=== PATIENT | female | born 1945 | race Caucasian/White ===

== ENCOUNTER 2020-08-18 14:33 | Observation (INO) ==
[2020-08-18 15:03] LABS: Basophils % 0.5 % (0.0-0.8); Eosinophils # 0.2 10*3/uL (0.0-0.87); Eosinophils % 1.7 % (0.00-10.9); Hemoglobin 11.7 GM/DL (12.0-16.0); Immature Granulocytes % 0.3 %; Immature Granulocytes Absolute 0.03 #; Lymphocytes # 1.3 10*3/uL (1.4-4.0); Mean Corpuscular HGB Conc 31.6 GM/DL (32-36); Mean Corpuscular Volume 91.4 FL (87-102); Mean Platelet Volume 12.1 FL (9.6-12.0); Monocytes % 6.3 % (1.7-12.7); Neutrophils % 76.2 % (38.7-73.9); Platelet Count 163 T/CUMM (130-400); Red Blood Count 4.05 MC/CUMM (3.8-5.5); White Blood Count 8.7 T/CUMM (4-12)
[2020-08-18 15:16] LABS: INR 1.1; PT Patient Result 11.9 SECS (10.5-12.0)
[2020-08-18 15:25] LABS: Bilirubin,Total 0.4 MG/DL (0.2-1.0); Calcium 8.2 MG/DL (8.5-10.1); Osmolality,Calculated 273.8 MOS/KG (273-304); Potassium 3.3 MMOL/L (3.5-5.1); Total Protein 7.7 G/DL (6.4-8.2)
[2020-08-18] MEDS ORDERED: GLUCAGON 1 MG VIAL IM PRN ×2 (16:26)
[2020-08-18] MEDS ORDERED: DEXTROSE 50% 25 GM/50 ML VIAL IV PRN ×2 (16:26)
[2020-08-18] MEDS ORDERED: POTASSIUM CHLORIDE 20 MEQ TABLET PO ONE (16:35)
[2020-08-18] MEDS: INSULIN LISPRO 100 UNIT/ML SUBCUT SCH ×2 (17:28→20:49)
[2020-08-18] MEDS ORDERED: ATORVASTATIN 10 MG TABLET PO SCH (21:00)
[2020-08-18] MEDS: SODIUM CHLORIDE 0.45% 1,000 ML IV SCH (21:34)
[2020-08-18] MEDS: BRIMONIDINE/TIMOLOL OPH SOLN 5 ML BOTTLE BOTH EYES SCH (22:08)
[2020-08-18] MEDS ORDERED: MAGNESIUM SULF RIDER 4 GM/100 ML PREMIX IV PRN (23:18)
[2020-08-18] MEDS ORDERED: POTASSIUM CHLORIDE RIDER 10 MEQ/100 ML PREMIX IV PRN (23:18)
[2020-08-19] MEDS ORDERED: ACETAMINOPHEN 325 MG TABLET PO PRN (00:05)
[2020-08-19] MEDS ORDERED: POTASSIUM CHLORIDE 20 MEQ TABLET PO PRN (00:12)
[2020-08-19] MEDS: MAGNESIUM SULF RIDER 2 GM/50 ML PREMIX IV PRN ×2 (01:04→02:49)
[2020-08-19 05:44] LABS: Basophils % 0.5 % (0.0-0.8); Eosinophils # 0.2 10*3/uL (0.0-0.87); Eosinophils % 2.5 % (0.00-10.9); Hematocrit 36.3 VOL% (35.7-47.0); Hemoglobin 11.8 GM/DL (12.0-16.0); Immature Granulocytes % 0.5 %; Immature Granulocytes Absolute 0.03 #; Lymphocytes # 1.4 10*3/uL (1.4-4.0); Lymphocytes % 22.1 % (21.3-54.2); Mean Corpuscular HGB Conc 32.5 GM/DL (32-36); Mean Corpuscular Volume 89.6 FL (87-102); Mean Platelet Volume 12.4 FL (9.6-12.0); Monocytes % 6.5 % (1.7-12.7); Neutrophils % 67.9 % (38.7-73.9); Platelet Count 161 T/CUMM (130-400); Red Blood Count 4.05 MC/CUMM (3.8-5.5); White Blood Count 6.3 T/CUMM (4-12)
[2020-08-19 06:11] LABS: Calcium 8.3 MG/DL (8.5-10.1); Osmolality,Calculated 276.7 MOS/KG (273-304); Thyroid Stimulating Hormone 2.34 uIU/ml (0.358-3.74)
[2020-08-19] MEDS: SODIUM CHLORIDE 0.45% 1,000 ML IV SCH (07:09)
[2020-08-19] MEDS: INSULIN LISPRO 100 UNIT/ML SUBCUT SCH ×2 (08:41→15:04)
[2020-08-19] MEDS ORDERED: APIXABAN 5 MG TABLET PO SCH (09:00)
[2020-08-19] MEDS ORDERED: AMIODARONE 200 MG TABLET PO SCH (09:00)
[2020-08-19] MEDS ORDERED: METOPROLOL SUCCINATE XL 50 MG TABLET PO SCH (09:00)
[2020-08-19] MEDS ORDERED: FERROUS SULFATE 325 MG TABLET PO SCH (09:00)
[2020-08-19] MEDS: BRIMONIDINE/TIMOLOL OPH SOLN 5 ML BOTTLE BOTH EYES SCH (11:27)
[2020-08-19 15:10] VITALS: BP 168/74
== END 2020-08-19 15:02 | disposition home or self-care (01) ==
LOC: EDUNIT# → EDBD → N.EDINP 14:33 → N.ED 14:33 → N.TELES 17:14
PROVIDERS: ADMIT Internal Medicine; ATTEND Internal Medicine

== ENCOUNTER 2021-01-11 05:10 | Inpatient (IN) ==
[2021-01-11] MEDS ORDERED: SODIUM CHLORIDE 0.9% 1,000 ML IV STA (06:06)
[2021-01-11 06:16] LABS: Basophils # 0.1 10*3/uL (0.0-0.2); Basophils % 0.4 % (0.0-0.8); Eosinophils # 0.1 10*3/uL (0.0-0.87); Eosinophils % 0.4 % (0.00-10.9); Hematocrit 46.3 VOL% (35.7-47.0); Hemoglobin 14.8 GM/DL (12.0-16.0); Immature Granulocytes % 0.6 %; Immature Granulocytes Absolute 0.09 #; Lymphocytes # 1.4 10*3/uL (1.4-4.0); Lymphocytes % 9.1 % (21.3-54.2); Mean Corpuscular Volume 90.1 FL (87-102); Mean Platelet Volume 11.4 FL (9.6-12.0); Monocytes % 4.9 % (1.7-12.7); Neutrophils % 84.6 % (38.7-73.9); Platelet Count 248 T/CUMM (130-400); Red Blood Count 5.14 MC/CUMM (3.8-5.5); Red Cell Distribution Width 13.7 % (9.3-17.3); White Blood Count 15.6 T/CUMM (4-12)
[2021-01-11] MEDS ORDERED: ONDANSETRON 4 MG/2 ML VIAL IV STA (06:25)
[2021-01-11 06:26] LABS: Albumin 4.2 G/DL (3.4-5.0); Bilirubin,Total 0.5 MG/DL (0.20-1.00); Calcium 10.3 MG/DL (8.5-10.1); Osmolality,Calculated 269.8 MOS/KG (273-304); Potassium 3.1 MMOL/L (3.5-5.1); Total Protein 9.1 G/DL (6.4-8.2)
[2021-01-11] MEDS ORDERED: ONDANSETRON 4 MG/2 ML VIAL ONE (06:30)
[2021-01-11 06:34] LABS: Bacteria,Urine Occasional /HPF (Few); Bilirubin,Urine Negative (Negative); Blood, Urine Negative (Negative); Glucose,Urine (UA) Negative (Negative); Hyaline Casts,Urine 18 /LPF (0-3); Ketones,Urine Negative (Negative); Mucus,Urine Occasional /LPF (Occasional); Nitrite,Urine Negative (Negative); Protein,Urine Negative; RBC,Urine 3 /HPF (0-4); Squamous Epithelial Cell,Urine Occasional /HPF (0-10); Urine Appearance Slightly Hazy (Clear); Urine Color Yellow (Yellow); Urine Specific Gravity 1.014 (1.001-1.035); Urine Urobilinogen < 2.0 EU/DL (0.2-1.0)
[2021-01-11] MEDS ORDERED: SODIUM CHLORIDE 0.9% 1,000 ML IV SCH (08:00)
[2021-01-11] MEDS ORDERED: DEXTROSE 50% 25 GM/50 ML SYRINGE IV PRN (08:39)
[2021-01-11] MEDS ORDERED: ONDANSETRON 4 MG/2 ML VIAL IV PRN (08:39)
[2021-01-11] MEDS ORDERED: GLUCAGON 1 MG VIAL IM PRN ×2 (08:39)
[2021-01-11] MEDS ORDERED: DEXTROSE 50% 25 GM/50 ML VIAL IV PRN (08:39)
[2021-01-11] MEDS ORDERED: MAGNESIUM SULF RIDER 4 GM/100 ML PREMIX IV PRN (08:45)
[2021-01-11] MEDS ORDERED: MAGNESIUM SULF RIDER 2 GM/50 ML PREMIX IV PRN (08:45)
[2021-01-11] MEDS ORDERED: ENOXAPARIN 30 MG/0.3 ML SYRINGE ONE (09:33)
[2021-01-11] MEDS ORDERED: PANTOPRAZOLE 40 MG TABLET PO ONE (09:33)
[2021-01-11] MEDS: ENOXAPARIN 30 MG/0.3 ML SYRINGE SUBCUT SCH (09:45)
[2021-01-11] MEDS: PANTOPRAZOLE 40 MG TABLET PO SCH (09:46)
[2021-01-11] MEDS: LACTATED RINGERS 1,000 ML IV SCH ×2 (10:25→23:00)
[2021-01-11] MEDS: INSULIN LISPRO 100 UNIT/ML SUBCUT SCH ×3 (12:30→22:03)
[2021-01-11] MEDS: POTASSIUM CHLORIDE RIDER 10 MEQ/100 ML PREMIX IV PRN ×4 (13:52→18:01)
[2021-01-12] MEDS: LACTATED RINGERS 1,000 ML IV SCH ×3 (05:25→23:43)
[2021-01-12 06:50] LABS: Bilirubin,Total 0.4 MG/DL (0.20-1.00); Calcium 8.9 MG/DL (8.5-10.1); Osmolality,Calculated 275.8 MOS/KG (273-304); Potassium 3.6 MMOL/L (3.5-5.1); Total Protein 6.6 G/DL (6.4-8.2)
[2021-01-12 06:55] LABS: Basophils % 0.5 % (0.0-0.8); Eosinophils # 0.3 10*3/uL (0.0-0.87); Eosinophils % 3.9 % (0.00-10.9); Hematocrit 35.9 VOL% (35.7-47.0); Immature Granulocytes % 0.5 %; Immature Granulocytes Absolute 0.03 #; Lymphocytes # 1.3 10*3/uL (1.4-4.0); Lymphocytes % 19.6 % (21.3-54.2); Mean Corpuscular HGB Conc 33.1 GM/DL (32-36); Mean Platelet Volume 11.6 FL (9.6-12.0); Monocytes % 8.1 % (1.7-12.7); Neutrophils % 67.4 % (38.7-73.9); Red Cell Distribution Width 13.5 % (9.3-17.3)
[2021-01-12 06:59] LABS: Hemoglobin 11.9 GM/DL (12.0-16.0); Platelet Count 151 T/CUMM (130-400); Red Blood Count 3.99 MC/CUMM (3.8-5.5); White Blood Count 6.4 T/CUMM (4-12)
[2021-01-12] MEDS: INSULIN LISPRO 100 UNIT/ML SUBCUT SCH ×4 (07:59→20:35)
[2021-01-12] MEDS: ENOXAPARIN 30 MG/0.3 ML SYRINGE SUBCUT SCH (08:34)
[2021-01-12] MEDS: PANTOPRAZOLE 40 MG TABLET PO SCH (08:34)
[2021-01-12] MEDS: POTASSIUM CHLORIDE RIDER 10 MEQ/100 ML PREMIX IV PRN ×2 (10:39→12:20)
[2021-01-12] MEDS: ACETAMINOPHEN 325 MG TABLET PO PRN ×2 (10:47→21:09)
[2021-01-12] MEDS: FESOTERODINE 4 MG PO SCH (15:28)
[2021-01-12] MEDS: AMITRIPTYLINE 50 MG TABLET PO SCH (20:59)
[2021-01-12] MEDS: ATORVASTATIN 10 MG TABLET PO SCH (20:59)
[2021-01-12] MEDS: PANTOPRAZOLE 40 MG VIAL IV SCH (20:59)
[2021-01-12] MEDS: BRIMONIDINE/TIMOLOL OPH SOLN 5 ML BOTTLE BOTH EYES SCH (21:00)
[2021-01-13] MEDS: LACTATED RINGERS 1,000 ML IV SCH ×2 (00:33→10:20)
[2021-01-13 05:50] LABS: Basophils % 0.7 % (0.0-0.8); Eosinophils # 0.3 10*3/uL (0.0-0.87); Eosinophils % 4.3 % (0.00-10.9); Hemoglobin 12.2 GM/DL (12.0-16.0); Immature Granulocytes % 0.5 %; Immature Granulocytes Absolute 0.03 #; Lymphocytes # 1.1 10*3/uL (1.4-4.0); Mean Corpuscular HGB Conc 32.1 GM/DL (32-36); Mean Corpuscular Volume 90.3 FL (87-102); Mean Platelet Volume 11.6 FL (9.6-12.0); Neutrophils % 69.5 % (38.7-73.9); Platelet Count 166 T/CUMM (130-400); Red Blood Count 4.21 MC/CUMM (3.8-5.5); Red Cell Distribution Width 13.6 % (9.3-17.3); White Blood Count 6.1 T/CUMM (4-12)
[2021-01-13 06:29] LABS: Calcium 9.7 MG/DL (8.5-10.1); Osmolality,Calculated 267.4 MOS/KG (273-304); Potassium 3.8 MMOL/L (3.5-5.1)
[2021-01-13] MEDS ORDERED: METHOCARBAMOL 500 MG TABLET PO PRN (08:26)
[2021-01-13] MEDS: FERROUS SULFATE 325 MG TABLET PO SCH (08:48)
[2021-01-13] MEDS: INSULIN LISPRO 100 UNIT/ML SUBCUT SCH ×4 (08:48→21:34)
[2021-01-13] MEDS: APIXABAN 2.5 MG TABLET PO SCH ×2 (08:48→20:51)
[2021-01-13] MEDS: FESOTERODINE 4 MG PO SCH (08:49)
[2021-01-13] MEDS: BRIMONIDINE/TIMOLOL OPH SOLN 5 ML BOTTLE BOTH EYES SCH ×2 (08:49→20:51)
[2021-01-13] MEDS: PANTOPRAZOLE 40 MG VIAL IV SCH ×2 (08:51→20:51)
[2021-01-13 15:22] LABS: Thyroid Stimulating Hormone 1.8 uIU/ml (0.358-3.74)
[2021-01-13] MEDS: SODIUM CHLORIDE 0.9% 1,000 ML IV SCH (17:29)
[2021-01-13] MEDS ORDERED: cefTRIAXone 1,000 MG in SODIUM CHLORIDE 0.9% 100 ML IV SCH (18:00)
[2021-01-13 18:05] LABS: ABG HCO3 25.2 MMOL/L (20-26); ABG Oxygen Saturation 95.5 % (95-100); ABG PCO2 36.9 MM HG (35-48); ABG PH 7.437 (7.35-7.45); ABG PO2 73.1 MM HG (80-95)
[2021-01-13] MEDS: ATORVASTATIN 10 MG TABLET PO SCH (20:51)
[2021-01-13] MEDS: AMITRIPTYLINE 50 MG TABLET PO SCH (20:51)
[2021-01-14] MEDS: SODIUM CHLORIDE 0.9% 1,000 ML IV SCH (04:35)
[2021-01-14 06:43] LABS: Basophils % 0.3 % (0.0-0.8); Eosinophils # 0.2 10*3/uL (0.0-0.87); Eosinophils % 4.1 % (0.00-10.9); Hematocrit 36.4 VOL% (35.7-47.0); Hemoglobin 11.6 GM/DL (12.0-16.0); Immature Granulocytes % 0.5 %; Immature Granulocytes Absolute 0.03 #; Lymphocytes % 16.7 % (21.3-54.2); Mean Corpuscular HGB Conc 31.9 GM/DL (32-36); Mean Corpuscular Volume 89.2 FL (87-102); Mean Platelet Volume 11.1 FL (9.6-12.0); Monocytes % 7.4 % (1.7-12.7); Platelet Count 152 T/CUMM (130-400); Red Blood Count 4.08 MC/CUMM (3.8-5.5); Red Cell Distribution Width 13.5 % (9.3-17.3); White Blood Count 5.8 T/CUMM (4-12)
[2021-01-14] MEDS: INSULIN LISPRO 100 UNIT/ML SUBCUT SCH ×3 (09:09→15:43)
[2021-01-14] MEDS: FERROUS SULFATE 325 MG TABLET PO SCH (09:09)
[2021-01-14] MEDS: PANTOPRAZOLE 40 MG VIAL IV SCH (09:10)
[2021-01-14] MEDS: BRIMONIDINE/TIMOLOL OPH SOLN 5 ML BOTTLE BOTH EYES SCH (09:12)
[2021-01-14 11:53] VITALS: BP 132/66
[2021-01-14 12:25] LABS: Alanine Aminotransferase 19 U/L (13-56); Albumin 2.9 G/DL (3.4-5.0); Alkaline Phosphatase 58 U/L (45-117); Aspartate Amino Transferase 16 U/L (0-37); Bilirubin,Total < 0.39 MG/DL (0.20-1.00); Blood Urea Nitrogen 6 MG/DL (7-18); Calcium 8.5 MG/DL (8.5-10.1); Carbon Dioxide 25 MMOL/L (21-32); Estimated Glom Filtration Rate 64 ML/MIN; Glucose 114 MG/DL (74-106); Osmolality,Calculated 277.4 MOS/KG (273-304); Potassium 3.2 MMOL/L (3.5-5.1); Sodium 140 MMOL/L (136-145); Total Protein 6.3 G/DL (6.4-8.2)
[2021-01-14] MEDS ORDERED: ZINC OXIDE 16% PASTE 57 GM TUBE TOP SCH (13:00)
[2021-01-14] MEDS: POTASSIUM CHLORIDE 20 MEQ TABLET PO PRN ×3 (13:07→15:42)
[2021-01-14] MEDS: FESOTERODINE 4 MG PO SCH (13:25)
[2021-01-14] MEDS: APIXABAN 2.5 MG TABLET PO SCH (13:25)
== END 2021-01-14 17:08 | disposition home or self-care (01) | DRG 683 ==
LOC: N.ED 05:10 → SUATTDRO 08:39 → N.3E 08:39
PROVIDERS: ADMIT Internal Medicine; ATTEND Internal Medicine

== ENCOUNTER 2021-01-29 11:16 | Inpatient (IN) ==
[2021-01-29] MEDS ORDERED: SODIUM CHLORIDE 0.9% 1,000 ML IV STA (11:49)
[2021-01-29 12:15] LABS: Basophils % 0.2 % (0.0-0.8); Eosinophils # 0.1 10*3/uL (0.0-0.87); Eosinophils % 1.4 % (0.00-10.9); Hemoglobin 12.3 GM/DL (12.0-16.0); Immature Granulocytes % 0.5 %; Immature Granulocytes Absolute 0.04 #; Lymphocytes # 1.1 10*3/uL (1.4-4.0); Lymphocytes % 14.2 % (21.3-54.2); Mean Corpuscular HGB Conc 32.4 GM/DL (32-36); Mean Corpuscular Volume 88.6 FL (87-102); Mean Platelet Volume 12.6 FL (9.6-12.0); Monocytes % 6.5 % (1.7-12.7); Neutrophils % 77.2 % (38.7-73.9); Platelet Count 172 T/CUMM (130-400); Red Blood Count 4.29 MC/CUMM (3.8-5.5); Red Cell Distribution Width 13.7 % (9.3-17.3)
[2021-01-29 12:37] LABS: Alanine Aminotransferase < 9 U/L (13-56); Albumin 3.1 G/DL (3.4-5.0); Alkaline Phosphatase 72 U/L (45-117); Aspartate Amino Transferase 15 U/L (0-37); Blood Urea Nitrogen 21 MG/DL (7-18); Calcium 8.6 MG/DL (8.5-10.1); Carbon Dioxide 26 MMOL/L (21-32); Estimated Glom Filtration Rate 32 ML/MIN; Glucose 153 MG/DL (74-106); Osmolality,Calculated 269.5 MOS/KG (273-304); Potassium 3.9 MMOL/L (3.5-5.1); Sodium 132 MMOL/L (136-145); Total Protein 6.7 G/DL (6.4-8.2)
[2021-01-29 13:36] LABS: INR 1.1; PT Patient Result 12.4 SECS (10.5-12.0)
[2021-01-29] MEDS ORDERED: ONDANSETRON 4 MG/2 ML VIAL IV PRN (14:55)
[2021-01-29] MEDS ORDERED: ACETAMINOPHEN 325 MG TABLET PO PRN (14:55)
[2021-01-29] MEDS ORDERED: GLUCAGON 1 MG VIAL IM PRN (14:55)
[2021-01-29] MEDS ORDERED: ONDANSETRON 4 MG TABLET PO PRN (14:59)
[2021-01-29] MEDS ORDERED: DEXTROSE 50% 25 GM/50 ML SYRINGE IV PRN (15:00)
[2021-01-29] MEDS: NITROFURANTOIN MACRO/MONO 100 MG CAPSULE PO SCH (21:25)
[2021-01-29] MEDS: AMITRIPTYLINE 50 MG TABLET PO SCH (21:25)
[2021-01-29] MEDS: GABAPENTIN 300 MG CAPSULE PO SCH (21:26)
[2021-01-29] MEDS: POTASSIUM CHLORIDE 10 MEQ TABLET PO SCH (21:26)
[2021-01-30 05:59] LABS: Basophils % 0.5 % (0.0-0.8); Eosinophils # 0.1 10*3/uL (0.0-0.87); Eosinophils % 3.5 % (0.00-10.9); Hematocrit 35.7 VOL% (35.7-47.0); Hemoglobin 11.3 GM/DL (12.0-16.0); Immature Granulocytes % 0.5 %; Immature Granulocytes Absolute 0.02 #; Lymphocytes # 1.3 10*3/uL (1.4-4.0); Mean Corpuscular HGB Conc 31.7 GM/DL (32-36); Mean Corpuscular Volume 90.6 FL (87-102); Mean Platelet Volume 12.2 FL (9.6-12.0); Monocytes % 9.3 % (1.7-12.7); Neutrophils % 54.2 % (38.7-73.9); Platelet Count 154 T/CUMM (130-400); Red Blood Count 3.94 MC/CUMM (3.8-5.5); Red Cell Distribution Width 13.6 % (9.3-17.3)
[2021-01-30 06:13] LABS: Calcium 8.9 MG/DL (8.5-10.1); Osmolality,Calculated 271.1 MOS/KG (273-304); Potassium 3.7 MMOL/L (3.5-5.1)
[2021-01-30] MEDS: POTASSIUM CHLORIDE 10 MEQ TABLET PO SCH ×3 (08:24→21:29)
[2021-01-30] MEDS: FUROSEMIDE 20 MG TABLET PO SCH (08:39)
[2021-01-30] MEDS: ZINC GLUCONATE 50 MG TABLET PO SCH (08:39)
[2021-01-30] MEDS: PANTOPRAZOLE 40 MG TABLET PO SCH (08:39)
[2021-01-30] MEDS: APIXABAN 5 MG TABLET PO SCH (08:39)
[2021-01-30] MEDS: FERROUS SULFATE 325 MG TABLET PO SCH (08:39)
[2021-01-30] MEDS: METOPROLOL SUCCINATE XL 25 MG TABLET PO SCH (08:39)
[2021-01-30] MEDS: sitaGLIPtin 25 MG TABLET PO SCH (08:39)
[2021-01-30] MEDS: FESOTERODINE 4 MG PO SCH (08:42)
[2021-01-30] MEDS ORDERED: lisinopriL 2.5 MG TABLET PO SCH (09:00)
[2021-01-30] MEDS: GABAPENTIN 300 MG CAPSULE PO SCH (21:29)
[2021-01-30] MEDS: NITROFURANTOIN MACRO/MONO 100 MG CAPSULE PO SCH (21:29)
[2021-01-30] MEDS: AMITRIPTYLINE 50 MG TABLET PO SCH (21:29)
[2021-01-31] MEDS: METOPROLOL SUCCINATE XL 25 MG TABLET PO SCH (08:14)
[2021-01-31] MEDS: ZINC GLUCONATE 50 MG TABLET PO SCH (08:14)
[2021-01-31] MEDS: sitaGLIPtin 25 MG TABLET PO SCH (08:15)
[2021-01-31] MEDS: FERROUS SULFATE 325 MG TABLET PO SCH (08:15)
[2021-01-31] MEDS: FUROSEMIDE 20 MG TABLET PO SCH (08:15)
[2021-01-31] MEDS: APIXABAN 5 MG TABLET PO SCH (08:15)
[2021-01-31] MEDS: PANTOPRAZOLE 40 MG TABLET PO SCH (08:15)
[2021-01-31] MEDS: POTASSIUM CHLORIDE 10 MEQ TABLET PO SCH ×3 (08:15→21:04)
[2021-01-31] MEDS: FESOTERODINE 4 MG PO SCH (08:16)
[2021-01-31 10:14] LABS: Osmolality,Calculated 267.8 MOS/KG (273-304)
[2021-01-31] MEDS ORDERED: MAGNESIUM SULF RIDER 4 GM/100 ML PREMIX IV ONE (11:10)
[2021-01-31] MEDS: GABAPENTIN 300 MG CAPSULE PO SCH (21:04)
[2021-01-31] MEDS: MENTHOL/ZINC OXIDE OINT 71 GM JAR TOP SCH (21:04)
[2021-01-31] MEDS: NITROFURANTOIN MACRO/MONO 100 MG CAPSULE PO SCH (21:04)
[2021-01-31] MEDS: AMITRIPTYLINE 50 MG TABLET PO SCH (21:04)
[2021-02-01 08:52] LABS: Calcium 9.3 MG/DL (8.5-10.1); Osmolality,Calculated 270.5 MOS/KG (273-304); Potassium 4.3 MMOL/L (3.5-5.1)
[2021-02-01] MEDS: ZINC GLUCONATE 50 MG TABLET PO SCH (09:01)
[2021-02-01] MEDS: DILTIAZEM 30 MG TABLET PO SCH ×5 (09:01→20:15)
[2021-02-01] MEDS: FERROUS SULFATE 325 MG TABLET PO SCH (09:01)
[2021-02-01] MEDS: POTASSIUM CHLORIDE 10 MEQ TABLET PO SCH ×3 (09:02→20:16)
[2021-02-01] MEDS: MENTHOL/ZINC OXIDE OINT 71 GM JAR TOP SCH ×2 (09:02→20:18)
[2021-02-01] MEDS: sitaGLIPtin 25 MG TABLET PO SCH (09:02)
[2021-02-01] MEDS: PANTOPRAZOLE 40 MG TABLET PO SCH (09:02)
[2021-02-01] MEDS: FUROSEMIDE 20 MG TABLET PO SCH (09:02)
[2021-02-01] MEDS: APIXABAN 5 MG TABLET PO SCH (09:02)
[2021-02-01] MEDS: METOPROLOL SUCCINATE XL 25 MG TABLET PO SCH ×2 (09:02→10:16)
[2021-02-01] MEDS: FESOTERODINE 4 MG PO SCH (10:22)
[2021-02-01] MEDS ORDERED: INSULIN REGULAR 100 UNIT/ML SUBCUT SCH (11:30)
[2021-02-01] MEDS: AMITRIPTYLINE 50 MG TABLET PO SCH (20:15)
[2021-02-01] MEDS: NITROFURANTOIN MACRO/MONO 100 MG CAPSULE PO SCH (20:15)
[2021-02-01] MEDS: GABAPENTIN 300 MG CAPSULE PO SCH (20:15)
[2021-02-02 05:47] LABS: Basophils % 0.8 % (0.0-0.8); Eosinophils # 0.2 10*3/uL (0.0-0.87); Eosinophils % 4.2 % (0.00-10.9); Hematocrit 38.1 VOL% (35.7-47.0); Hemoglobin 12.6 GM/DL (12.0-16.0); Immature Granulocytes % 0.2 %; Immature Granulocytes Absolute 0.01 #; Lymphocytes # 1.5 10*3/uL (1.4-4.0); Lymphocytes % 31.8 % (21.3-54.2); Mean Corpuscular HGB Conc 33.1 GM/DL (32-36); Mean Platelet Volume 12.3 FL (9.6-12.0); Monocytes % 7.7 % (1.7-12.7); Neutrophils % 55.3 % (38.7-73.9); Platelet Count 173 T/CUMM (130-400); Red Blood Count 4.33 MC/CUMM (3.8-5.5); Red Cell Distribution Width 13.8 % (9.3-17.3); White Blood Count 4.8 T/CUMM (4-12)
[2021-02-02 06:08] LABS: Calcium 9.2 MG/DL (8.5-10.1); Osmolality,Calculated 271.4 MOS/KG (273-304)
[2021-02-02 06:28] LABS: Eosinophils 4 % (0-10); Lymphocytes 31 % (20-55); Platelet Estimate Normal; Segmented Neutrophils 60 % (50-85); Total Cells Counted 100
[2021-02-02] MEDS: sitaGLIPtin 25 MG TABLET PO SCH (08:30)
[2021-02-02] MEDS: PANTOPRAZOLE 40 MG TABLET PO SCH (08:30)
[2021-02-02] MEDS: FUROSEMIDE 20 MG TABLET PO SCH (08:30)
[2021-02-02] MEDS: POTASSIUM CHLORIDE 10 MEQ TABLET PO SCH ×3 (08:30→20:37)
[2021-02-02] MEDS: APIXABAN 5 MG TABLET PO SCH (08:31)
[2021-02-02] MEDS: METOPROLOL SUCCINATE XL 25 MG TABLET PO SCH (08:31)
[2021-02-02] MEDS: DILTIAZEM 30 MG TABLET PO SCH ×4 (08:31→20:37)
[2021-02-02] MEDS: FERROUS SULFATE 325 MG TABLET PO SCH (08:31)
[2021-02-02] MEDS: ZINC GLUCONATE 50 MG TABLET PO SCH (08:31)
[2021-02-02] MEDS: MENTHOL/ZINC OXIDE OINT 71 GM JAR TOP SCH ×2 (08:31→20:44)
[2021-02-02] MEDS: FESOTERODINE 4 MG PO SCH (09:34)
[2021-02-02] MEDS: AMITRIPTYLINE 50 MG TABLET PO SCH (20:36)
[2021-02-02] MEDS: NITROFURANTOIN MACRO/MONO 100 MG CAPSULE PO SCH (20:36)
[2021-02-02] MEDS: GABAPENTIN 300 MG CAPSULE PO SCH (20:37)
[2021-02-02] MEDS: APIXABAN 2.5 MG TABLET PO SCH (20:37)
[2021-02-03 05:38] LABS: Basophils % 0.7 % (0.0-0.8); Eosinophils # 0.3 10*3/uL (0.0-0.87); Eosinophils % 4.9 % (0.00-10.9); Hematocrit 37.8 VOL% (35.7-47.0); Hemoglobin 12.3 GM/DL (12.0-16.0); Immature Granulocytes % 0.3 %; Immature Granulocytes Absolute 0.02 #; Lymphocytes # 1.7 10*3/uL (1.4-4.0); Lymphocytes % 29.4 % (21.3-54.2); Mean Corpuscular HGB Conc 32.5 GM/DL (32-36); Mean Corpuscular Volume 87.9 FL (87-102); Mean Platelet Volume 12.7 FL (9.6-12.0); Monocytes % 8.2 % (1.7-12.7); Neutrophils % 56.5 % (38.7-73.9); Platelet Count 165 T/CUMM (130-400); Red Cell Distribution Width 13.8 % (9.3-17.3); White Blood Count 5.7 T/CUMM (4-12)
[2021-02-03 06:02] LABS: Calcium 8.9 MG/DL (8.5-10.1); Osmolality,Calculated 269.4 MOS/KG (273-304); Potassium 3.8 MMOL/L (3.5-5.1)
[2021-02-03] MEDS: PANTOPRAZOLE 40 MG TABLET PO SCH (08:14)
[2021-02-03] MEDS: ZINC GLUCONATE 50 MG TABLET PO SCH (08:14)
[2021-02-03] MEDS: METOPROLOL SUCCINATE XL 25 MG TABLET PO SCH (08:14)
[2021-02-03] MEDS: APIXABAN 2.5 MG TABLET PO SCH ×2 (08:14→20:16)
[2021-02-03] MEDS: sitaGLIPtin 25 MG TABLET PO SCH (08:14)
[2021-02-03] MEDS: FERROUS SULFATE 325 MG TABLET PO SCH (08:15)
[2021-02-03] MEDS: DILTIAZEM 30 MG TABLET PO SCH ×4 (08:15→20:16)
[2021-02-03] MEDS: FUROSEMIDE 20 MG TABLET PO SCH (08:15)
[2021-02-03] MEDS: POTASSIUM CHLORIDE 10 MEQ TABLET PO SCH ×3 (08:15→20:16)
[2021-02-03] MEDS: MENTHOL/ZINC OXIDE OINT 71 GM JAR TOP SCH ×2 (08:16→22:22)
[2021-02-03] MEDS ORDERED: BISACODYL 5 MG TABLET PO ONE (09:22)
[2021-02-03] MEDS ORDERED: MAGNESIUM SULF RIDER 4 GM/100 ML PREMIX IV PRN (09:25)
[2021-02-03] MEDS ORDERED: MAGNESIUM SULF RIDER 2 GM/50 ML PREMIX IV PRN (09:25)
[2021-02-03] MEDS: POLYETHYLENE GLYCOL POWDER 17 GM PACK PO SCH (09:32)
[2021-02-03] MEDS: FESOTERODINE 4 MG PO SCH (11:00)
[2021-02-03] MEDS: NITROFURANTOIN MACRO/MONO 100 MG CAPSULE PO SCH (20:16)
[2021-02-03] MEDS: GABAPENTIN 300 MG CAPSULE PO SCH (20:16)
[2021-02-03] MEDS: AMITRIPTYLINE 50 MG TABLET PO SCH (20:17)
[2021-02-04] MEDS ORDERED: DILTIAZEM 50 MG/10 ML VIAL IV ONE (00:47)
[2021-02-04] MEDS: DILTIAZEM INJ 100 MG in SODIUM CHLORIDE 0.9% 100 ML IV SCH (01:20)
[2021-02-04 05:58] LABS: Osmolality,Calculated 269.7 MOS/KG (273-304); Potassium 4.2 MMOL/L (3.5-5.1)
[2021-02-04] MEDS: APIXABAN 2.5 MG TABLET PO SCH (12:42)
[2021-02-04] MEDS: FUROSEMIDE 20 MG TABLET PO SCH (12:42)
[2021-02-04] MEDS: POTASSIUM CHLORIDE 10 MEQ TABLET PO SCH ×3 (12:42→21:06)
[2021-02-04] MEDS: POLYETHYLENE GLYCOL POWDER 17 GM PACK PO SCH (12:42)
[2021-02-04] MEDS: ZINC GLUCONATE 50 MG TABLET PO SCH (12:42)
[2021-02-04] MEDS: METOPROLOL SUCCINATE XL 25 MG TABLET PO SCH (12:43)
[2021-02-04] MEDS: PANTOPRAZOLE 40 MG TABLET PO SCH (12:43)
[2021-02-04] MEDS: FERROUS SULFATE 325 MG TABLET PO SCH (12:43)
[2021-02-04] MEDS: MENTHOL/ZINC OXIDE OINT 71 GM JAR TOP SCH ×2 (12:45→21:06)
[2021-02-04] MEDS: FESOTERODINE 4 MG PO SCH (12:46)
[2021-02-04] MEDS: sitaGLIPtin 25 MG TABLET PO SCH (12:47)
[2021-02-04] MEDS: DILTIAZEM 60 MG TABLET PO SCH ×3 (14:30→21:06)
[2021-02-04] MEDS: AMITRIPTYLINE 50 MG TABLET PO SCH (21:06)
[2021-02-04] MEDS: NITROFURANTOIN MACRO/MONO 100 MG CAPSULE PO SCH (21:06)
[2021-02-04] MEDS: GABAPENTIN 300 MG CAPSULE PO SCH (21:06)
[2021-02-04] MEDS: APIXABAN 5 MG TABLET PO SCH (21:06)
[2021-02-05 05:33] LABS: Basophils % 0.7 % (0.0-0.8); Eosinophils # 0.2 10*3/uL (0.0-0.87); Hematocrit 38.2 VOL% (35.7-47.0); Hemoglobin 12.1 GM/DL (12.0-16.0); Immature Granulocytes % 0.5 %; Immature Granulocytes Absolute 0.03 #; Lymphocytes # 1.4 10*3/uL (1.4-4.0); Lymphocytes % 24.6 % (21.3-54.2); Mean Corpuscular HGB Conc 31.7 GM/DL (32-36); Mean Corpuscular Volume 89.7 FL (87-102); Mean Platelet Volume 12.2 FL (9.6-12.0); Monocytes % 11.4 % (1.7-12.7); Neutrophils % 58.8 % (38.7-73.9); Platelet Count 139 T/CUMM (130-400); Red Blood Count 4.26 MC/CUMM (3.8-5.5); Red Cell Distribution Width 14.6 % (9.3-17.3); White Blood Count 5.7 T/CUMM (4-12)
[2021-02-05 05:50] LABS: Calcium 9.2 MG/DL (8.5-10.1); Osmolality,Calculated 270.4 MOS/KG (273-304); Potassium 4.2 MMOL/L (3.5-5.1)
[2021-02-05] MEDS: FERROUS SULFATE 325 MG TABLET PO SCH (09:17)
[2021-02-05] MEDS: METOPROLOL SUCCINATE XL 25 MG TABLET PO SCH (09:17)
[2021-02-05] MEDS: ZINC GLUCONATE 50 MG TABLET PO SCH (09:17)
[2021-02-05] MEDS: FUROSEMIDE 20 MG TABLET PO SCH (09:17)
[2021-02-05] MEDS: POTASSIUM CHLORIDE 10 MEQ TABLET PO SCH ×2 (09:17→09:20)
[2021-02-05] MEDS: APIXABAN 5 MG TABLET PO SCH (09:17)
[2021-02-05] MEDS: PANTOPRAZOLE 40 MG TABLET PO SCH (09:17)
[2021-02-05] MEDS: FESOTERODINE 4 MG PO SCH (09:18)
[2021-02-05] MEDS: POLYETHYLENE GLYCOL POWDER 17 GM PACK PO SCH (09:20)
[2021-02-05] MEDS: sitaGLIPtin 25 MG TABLET PO SCH (09:20)
[2021-02-05] MEDS: MENTHOL/ZINC OXIDE OINT 71 GM JAR TOP SCH (09:26)
[2021-02-05] MEDS: DILTIAZEM 60 MG TABLET PO SCH ×2 (09:27→12:38)
[2021-02-05] MEDS ORDERED: ASPIRIN CHEW 81 MG TABLET PO SCH (10:00)
[2021-02-05] MEDS: DILTIAZEM INJ 100 MG in SODIUM CHLORIDE 0.9% 100 ML IV SCH (10:14)
[2021-02-05 12:15] VITALS: BP 120/77
== END 2021-02-05 14:20 | disposition home health service (06) | DRG 884 ==
LOC: EDUNIT# → EDBD → N.ED 11:16 → N.TELES 11:16 → SUATTDRO 01-31 12:26
PROVIDERS: ADMIT Internal Medicine; ATTEND Internal Medicine

== ENCOUNTER 2021-02-06 13:32 | Inpatient (IN) ==
[2021-02-06] MEDS ORDERED: AMIODARONE INJ 150 MG in DEXTROSE 5% 100 ML IV STA (13:54)
[2021-02-06] MEDS ORDERED: AMIODARONE INJ 450 MG in DEXTROSE 5% 241 ML IV SCH (14:00)
[2021-02-06] MEDS ORDERED: DILTIAZEM 50 MG/10 ML VIAL IV STA (14:03)
[2021-02-06] MEDS ORDERED: SODIUM CHLORIDE 0.9% 500 ML IV STA (14:10)
[2021-02-06 14:34] LABS: Basophils % 0.5 % (0.0-0.8); Eosinophils # 0.1 10*3/uL (0.0-0.87); Eosinophils % 1.2 % (0.00-10.9); Hematocrit 35.5 VOL% (35.7-47.0); Hemoglobin 11.3 GM/DL (12.0-16.0); Immature Granulocytes % 0.3 %; Immature Granulocytes Absolute 0.03 #; Lymphocytes # 1.1 10*3/uL (1.4-4.0); Lymphocytes % 12.9 % (21.3-54.2); Mean Corpuscular HGB Conc 31.8 GM/DL (32-36); Mean Corpuscular Volume 89.4 FL (87-102); Mean Platelet Volume 12.4 FL (9.6-12.0); Monocytes % 7.2 % (1.7-12.7); Neutrophils % 77.9 % (38.7-73.9); Platelet Count 148 T/CUMM (130-400); Red Blood Count 3.97 MC/CUMM (3.8-5.5); Red Cell Distribution Width 14.6 % (9.3-17.3); White Blood Count 8.8 T/CUMM (4-12)
[2021-02-06] MEDS: DILTIAZEM INJ 100 MG in SODIUM CHLORIDE 0.9% 100 ML IV SCH (14:37)
[2021-02-06 14:55] LABS: INR 1.2; PT Patient Result 13.2 SECS (10.5-12.0); Partial Thromboplastin Time 34.9 SECS (23.8-32.1)
[2021-02-06 14:57] LABS: Albumin 2.8 G/DL (3.4-5.0); Bilirubin,Total 0.4 MG/DL (0.20-1.00); Calcium 8.6 MG/DL (8.5-10.1); Osmolality,Calculated 274.4 MOS/KG (273-304); Potassium 4.4 MMOL/L (3.5-5.1); Thyroid Stimulating Hormone 4.59 uIU/ml (0.358-3.74); Total Protein 6.8 G/DL (6.4-8.2)
[2021-02-06] MEDS ORDERED: ONDANSETRON 4 MG/2 ML VIAL IV STA (15:53)
[2021-02-06] MEDS ORDERED: fentaNYL 100 MCG/2 ML VIAL IV STA (15:53)
[2021-02-06] MEDS ORDERED: GLUCAGON 1 MG VIAL IM PRN ×2 (16:50→17:03)
[2021-02-06] MEDS ORDERED: DEXTROSE 50% 25 GM/50 ML VIAL IV PRN (17:03)
[2021-02-06] MEDS ORDERED: DOCUSATE SODIUM 100 MG CAPSULE PO PRN (17:03)
[2021-02-06] MEDS ORDERED: ONDANSETRON 4 MG/2 ML VIAL IV PRN (17:03)
[2021-02-06] MEDS ORDERED: ACETAMINOPHEN 325 MG TABLET PO PRN (17:03)
[2021-02-06] MEDS ORDERED: CALCIUM CARBONATE CHEW 500 MG TABLET PO PRN (17:03)
[2021-02-06] MEDS ORDERED: SIMETHICONE CHEW 125 MG TABLET PO PRN (17:03)
[2021-02-06] MEDS ORDERED: DEXTROSE 50% 25 GM/50 ML SYRINGE IV PRN (17:15)
[2021-02-06] MEDS: LACTATED RINGERS 1,000 ML IV SCH (17:50)
[2021-02-06 19:15] LABS: Barbiturates Screen,Urine Negative (Negative); Benzodiazepines Screen,Urine Negative (Negative); Cannabinoid Screen,Urine Negative (Negative); Opiate Screen,Urine Positive (Negative); Phencyclidine Screen,Urine Negative (Negative)
[2021-02-06] MEDS: INSULIN LISPRO 100 UNIT/ML SUBCUT SCH (21:47)
[2021-02-06] MEDS: APIXABAN 5 MG TABLET PO SCH (21:47)
[2021-02-07] MEDS: LACTATED RINGERS 1,000 ML IV SCH ×2 (01:29→22:55)
[2021-02-07 04:59] LABS: Basophils % 0.4 % (0.0-0.8); Eosinophils # 0.2 10*3/uL (0.0-0.87); Eosinophils % 1.8 % (0.00-10.9); Hematocrit 33.6 VOL% (35.7-47.0); Hemoglobin 10.9 GM/DL (12.0-16.0); Immature Granulocytes % 0.5 %; Immature Granulocytes Absolute 0.05 #; Lymphocytes # 1.1 10*3/uL (1.4-4.0); Lymphocytes % 11.3 % (21.3-54.2); Mean Corpuscular HGB Conc 32.4 GM/DL (32-36); Mean Corpuscular Volume 89.1 FL (87-102); Mean Platelet Volume 12.5 FL (9.6-12.0); Monocytes % 8.8 % (1.7-12.7); Neutrophils % 77.2 % (38.7-73.9); Platelet Count 159 T/CUMM (130-400); Red Blood Count 3.77 MC/CUMM (3.8-5.5); Red Cell Distribution Width 14.8 % (9.3-17.3); White Blood Count 9.4 T/CUMM (4-12)
[2021-02-07 05:34] LABS: Albumin 2.7 G/DL (3.4-5.0); Bilirubin,Total 1.1 MG/DL (0.20-1.00); Calcium 8.8 MG/DL (8.5-10.1); Osmolality,Calculated 282.8 MOS/KG (273-304); Potassium 4.5 MMOL/L (3.5-5.1); Total Protein 6.8 G/DL (6.4-8.2)
[2021-02-07] MEDS ORDERED: MAGNESIUM SULF RIDER 2 GM/50 ML PREMIX IV ONE (07:46)
[2021-02-07 08:08] LABS: ABG Base Excess -2.9 MMOL/L (-2.5-2.5); ABG Oxygen Saturation 94.1 % (95-100); ABG PCO2 33.6 MM HG (35-48); ABG PH 7.414 (7.35-7.45); ABG PO2 70.3 MM HG (80-95); Allen Test Positive
[2021-02-07] MEDS: APIXABAN 5 MG TABLET PO SCH ×2 (09:02→22:55)
[2021-02-07] MEDS: PANTOPRAZOLE 40 MG TABLET PO SCH (09:02)
[2021-02-07] MEDS: INSULIN LISPRO 100 UNIT/ML SUBCUT SCH (09:04)
[2021-02-07] MEDS ORDERED: MORPHINE 10 MG/5 ML UDCUP PO PRN (09:55)
[2021-02-07] MEDS: DILTIAZEM INJ 100 MG in SODIUM CHLORIDE 0.9% 100 ML IV SCH ×2 (11:46→19:37)
[2021-02-07] MEDS: MORPHINE 10 MG/5 ML UDCUP PO PRN ×2 (12:51→18:38)
[2021-02-07] MEDS: LORazepam 1 MG TABLET PO PRN ×2 (12:51→18:35)
[2021-02-08] MEDS: DILTIAZEM INJ 100 MG in SODIUM CHLORIDE 0.9% 100 ML IV SCH (05:45)
[2021-02-08] MEDS: LORazepam 1 MG TABLET PO PRN ×2 (05:46→10:37)
[2021-02-08] MEDS: LACTATED RINGERS 1,000 ML IV SCH (06:01)
[2021-02-08] MEDS: MORPHINE 10 MG/5 ML UDCUP PO PRN ×2 (06:06→10:37)
[2021-02-08 09:17] VITALS: BP 115/61
[2021-02-08] MEDS: APIXABAN 5 MG TABLET PO SCH (10:25)
[2021-02-08] MEDS: PANTOPRAZOLE 40 MG TABLET PO SCH (10:25)
== END 2021-02-08 10:50 | disposition hospice, home (50) | DRG 309 ==
LOC: EDUNIT# → EDBD → N.ED 13:32 → N.TELEN 16:50
PROVIDERS: ADMIT Internal Medicine; ATTEND Internal Medicine